=== PATIENT | female | born 1960 | race Caucasian/White ===

== ENCOUNTER 2018-08-12 08:43 | Day surgery (SDC) | payer BC ==
[~2018-08-12 08:43] MED LIST: LACTATED RINGER'S 1,000 ML IV; SEVOFLURANE 15 MIN
[2018-08-12 10:04] LABS: ADD MAN DIFF? NO
[2018-08-12 10:08] LABS: BASOPHILS % 0.6 % (0.0-2.0); EOSINOPHILS # 0.1 10^3/ul (0.0-0.5); EOSINOPHILS % 1.3 % (0.0-7.0); HEMATOCRIT 41.5 % (37.0-47.0); HEMOGLOBIN 14.1 g/dl (12.0-16.0); LYMPHOCYTES # 2.1 10^3/ul (0.8-2.9); LYMPHOCYTES % 39.7 % (15.0-51.0); MEAN CORPUSCULAR HEMOGLOBIN 30.9 pg (29.0-33.0); MEAN PLATELET VOLUME 10.4 fl (7.4-10.4); MONOCYTE # 0.3 10^3/ul (0.3-0.9); MONOCYTES % 6.2 % (0.0-11.0); NEUTROPHIL # 2.8 10^3/ul (1.6-7.5); NEUTROPHILS % 51.8 % (39.0-77.0); PLATELET COUNT 204 10^3/UL (140-415); RED BLOOD COUNT 4.56 10^6/ul (4.20-5.40); RED CELL DISTRIBUTION WIDTH 11.9 % (11.5-14.5)
[2018-08-12 10:08] LABS: WHITE BLOOD COUNT 5.3 10^3/ul (4.8-10.8)
[2018-08-12 10:30] LABS: ALANINE AMINOTRANSFERASE 26 IU/L (13-69); ALBUMIN 4.7 g/dl (3.3-4.9); ALBUMIN/GLOBULIN RATIO 1.27; ALKALINE PHOSPHATASE 73 IU/L (42-121); ANION GAP 12 (5-13); ASPARTATE AMINO TRANSFERASE 33 IU/L (15-46); BILIRUBIN,INDIRECT 0.5 mg/dl (0-1.1); BILIRUBIN,TOTAL 0.5 mg/dl (0.2-1.3); BLOOD UREA NITROGEN 12 mg/dl (7-20); CALCIUM 9.6 mg/dl (8.4-10.2); CHLORIDE 101 mmol/L (97-110); CREATININE 0.69 mg/dl (0.44-1.00); Estimated GFR > 60 mL/min (>60); GLUCOSE 104 mg/dl (70-220); POTASSIUM 4.9 mmol/L (3.5-5.1)
[2018-08-12 10:36] LABS: SODIUM 145 mmol/L (135-144)
[2018-08-12 10:37] LABS: CARBON DIOXIDE 32 mmol/L (21-31); TOTAL PROTEIN 8.4 g/dl (6.1-8.1)
[2018-08-12] MEDS ORDERED: PROPOFOL 20 ML (10:40)
[2018-08-12] MEDS ORDERED: ETOMIDATE 20 MG INJ (10:40)
[2018-08-12] MEDS ORDERED: LIDOCAINE 1% (MDV) 20 ML INJ (10:40)
[2018-08-12] MEDS ORDERED: MIDAZOLAM 1 MG/ML 2 ML INJ (10:40)
[2018-08-12] MEDS ORDERED: FENTAnyl 50 MCG/ML VIAL (10:54)
[2018-08-12] MEDS ORDERED: CEFAZOLIN 1 GM INJ (10:55)
[2018-08-12] MEDS ORDERED: ONDANSETRON 4 MG INJ (10:55)
[2018-08-12] MEDS: HYDROmorphONE 1 MG/5 ML IV SYRINGE IV (11:52)
[2018-08-12] MEDS ORDERED: HYDROmorphONE 1 MG/5 ML IV SYRINGE IV (12:00)
== END 2018-08-12 12:47 | disposition home or self-care (01) ==
LOC: SDS 08:43
DX: N95.0 Postmenopausal bleeding (principal); E03.9 Hypothyroidism, unspecified
CPT/HCPCS: 58120; 71045; 80053; 85025; 86850; 86900; 86901; 88305; 93005

== ENCOUNTER 2018-09-26 06:06 | Day surgery (SDC) | payer BC ==
[2018-09-26] MEDS ORDERED: CEFAZOLIN 2 GM/50 ML (PMX) 50 ML IVPB (07:00)
[2018-09-26] MEDS ORDERED: SOD CHLORIDE 0.9% 1,000 ML IV (07:00)
[2018-09-26] MEDS: BUPIVACAINE 0.25% (MPF) 30 ML INJ (08:02)
[2018-09-26] MEDS ORDERED: MIDAZOLAM 1 MG/ML 2 ML INJ (08:20)
[2018-09-26] MEDS ORDERED: GLYCOPYRROLATE 0.4 MG INJ (09:02)
[2018-09-26] MEDS ORDERED: NEOSTIGMINE 10 MG INJ (09:02)
[2018-09-26] MEDS ORDERED: ROCURONIUM 50 MG INJ (09:02)
[2018-09-26] MEDS ORDERED: PROPOFOL 20 ML (09:02)
[2018-09-26] MEDS ORDERED: LIDOCAINE 2% (SDV) 5 ML INJ (09:02)
[2018-09-26] MEDS ORDERED: ONDANSETRON 4 MG INJ (09:03)
[2018-09-26] MEDS ORDERED: CEFAZOLIN 1 GM INJ (09:11)
[2018-09-26] MEDS ORDERED: METOCLOPRAMIDE 10 MG INJ IV (09:30)
[2018-09-26] MEDS ORDERED: KETOROLAC 30 MG INJ IV (09:30)
[2018-09-26] MEDS ORDERED: HYDROmorphONE 1 MG/5 ML IV SYRINGE IV ×2 (09:30)
[2018-09-26] MEDS ORDERED: hydrALAzine 20 MG INJ IV (09:30)
[2018-09-26] MEDS ORDERED: MEPERIDINE 25 MG INJ IV (09:30)
[2018-09-26] MEDS ORDERED: DIPHENHYDRAMINE 50 MG INJ IV (09:30)
[2018-09-26] MEDS ORDERED: LABETALOL HCL 20MG INJ IV (09:30)
[2018-09-26] MEDS: FENTAnyl 50 MCG/ML VIAL IV (10:02)
[2018-09-26] MEDS: ONDANSETRON 4 MG INJ IV (10:07)
[2018-09-26] MEDS: HYDROCODONE/APAP (5/325) TAB PO (10:52)
== END 2018-09-26 11:50 | disposition home or self-care (01) ==
LOC: SDS 06:06
DX: K80.10 Calculus of gallbladder with chronic cholecystitis without obstruction (principal); E03.9 Hypothyroidism, unspecified
CPT/HCPCS: 47562; 88304